=== PATIENT | female | born 2000 | race Hispanic/Latino ===

== ENCOUNTER 2020-08-12 21:47 | Inpatient (IN) | payer OTHER ==
[2020-08-12 22:57] LABS: Bilirubin Neg (Negative); Blood, Urine Negative (Negative); Clarity Clear (Clear); Glucose, Urine (Dipstick) Normal (Negative); Ketone, Urine 50 mg/dL (Negative); Leukocyte Negative (Negative); Nitrite Negative (Negative); Protein, Urine (Dipstick) Negative (Neg-Trace); Urobilinogen Normal mg/dL (Less than 2)
[2020-08-12 23:01] LABS: Pregnancy Test - Urine (BHCG) Negative (Negative)
[2020-08-12 23:02] LABS: Pregu Control Background? CLEAR/WHITE (CLR/WHITE); Pregu Control Bar Appear? YES (CONTROL BAR)
[2020-08-12] MEDS ORDERED: Ondansetron PF 4 MG/2 ML Vial ONE (23:57)
[2020-08-12] MEDS ORDERED: Morphine 4 MG/ML VIAL ONE (23:57)
[2020-08-13 00:07] LABS: #Monocytes 0.2 10x3/uL (0.0-1.1); #Neutrophils 7.8 10x3/uL (1.5-8.4); %Basophils 0.2 % (0.0-2.0); %Eosinophils 0.3 % (0.0-6.0); %Lymphocytes 13.9 % (18.0-47.0); %Monocytes 1.8 % (0.0-10.0); %Neutrophils 83.5 % (40.0-75.0); Hemoglobin 9.9 g/dL (12.0-15.5); Mean Corpuscular HGB CONC 29.2 g/dL (32.0-36.0); Mean Corpuscular Volume 65.2 fl (81.6-98.3); Mean Platelet Volume 8.8 fl (7.4-10.4); Platelet Count 407 10x3/uL (150-450); RBC Distribution Width 18.6 % (11.5-14.5); White Blood Cell (WBC) Count 9.3 10x3/uL (3.5-10.5)
[2020-08-13 00:24] LABS: ALT (SGPT) 11 U/L (8-55); AST (SGOT) 17 U/L (5-34); Albumin 4.4 g/dL (3.5-5.0); Alkaline Phosphatase 63 U/L (40-110); Anion Gap 15 mmol/L (10-20); BUN (Urea Nitrogen) 6 mg/dL (7.0-18.7); Bilirubin, Total 0.5 mg/dL (0.2-1.2); Calc. Creatinine Clearance 0 mL/min (70-130); Calcium 9.8 mg/dL (7.8-10.44); Carbon Dioxide 19 mmol/L (22-29); Chloride 105 mmol/L (98-107); Globulin 3.6 g/dL (2.4-3.5); Glucose 103 mg/dL (70-105); Lipase 26 U/L (8-78); Potassium 3.8 mmol/L (3.5-5.1); Sodium 135 mmol/L (136-145)
[2020-08-13 00:33] LABS: Platelet Morphology Comment Appears Adequate
[2020-08-13 00:35] LABS: Anisocytosis SLIGHT = 6-15 cells (100X) (0-5/hpf); Hypochromia SLIGHT = 6-15 cells (100X) (0-5/hpf); Macrocytosis SLIGHT = 6-15 cells (100X) (0-5/hpf); Microcytosis SLIGHT = 6-15 cells (100X) (0-5/hpf); Target Cells SLIGHT = 2-5 cells (100X) (0-1/hpf)
[2020-08-13] MEDS ORDERED: Morphine 2 MG/ML VIAL SLOW IVP PRN (02:21)
[2020-08-13] MEDS ORDERED: Morphine 4 MG/ML VIAL SLOW IVP PRN (02:21)
[2020-08-13] MEDS ORDERED: Ketorolac Tromethamine 30 MG/ML VIAL IVP PRN (02:21)
[2020-08-13] MEDS ORDERED: Ondansetron PF 4 MG/2 ML Vial IVP PRN (02:23)
[2020-08-13] MEDS ORDERED: Potassium Chloride 20 MEQ/100 ML PREMIX BAG IVPB SCH (03:00)
[2020-08-13] MEDS ORDERED: Morphine 4 MG/ML VIAL ONE ×2 (03:21→05:34)
[2020-08-13] MEDS ORDERED: Potassium Chloride 20 MEQ/100 ML PREMIX BAG ONE (03:35)
[2020-08-13] MEDS ORDERED: Ketorolac Tromethamine 30 MG/ML VIAL ONE (03:35)
[2020-08-13 05:40] LABS: Iron 25 ug/dL (50-170); Iron Binding Capacity, Total 555 mcg/dL (265-497)
[2020-08-13] MEDS: Lactated Ringer's 1,000 ML IV SCH ×2 (05:54→09:49)
[2020-08-13] MEDS ORDERED: Pantoprazole 40 MG VIAL IVP SCH (09:00)
[2020-08-13 10:29] LABS: SARS-CoV-2 NAA Rapid Test Not Detected (NotDetected)
[2020-08-13] MEDS ORDERED: Acetaminophen 500 MG TAB PO PRN (14:58)
[2020-08-13 15:48] VITALS: BMI 19.8
[2020-08-13] MEDS ORDERED: Enoxaparin Sodium 40 MG/0.4 ML SYRINGE SC SCH (21:00)
[2020-08-14] MEDS ORDERED: Polyethylene Glycol 3350 17 GM Packet PO SCH (09:00)
[2020-08-14 11:38] VITALS: BP 102/68; TEMP 98
== END 2020-08-14 16:19 | disposition home or self-care (01) | DRG 390 ==
LOC: CSHERS 21:47 → CSHERHOLD 08-13 04:13 → CSHTELE 08-13 08:50
PROVIDERS: ADMIT Family Medicine; ATTEND Internal Medicine
DX: K56.609 Unspecified intestinal obstruction, unspecified as to partial versus complete obstruction (principal); D50.9 Iron deficiency anemia, unspecified; Z87.19 Personal history of other diseases of the digestive system; Z98.890 Other specified postprocedural states; Z90.721 Acquired absence of ovaries, unilateral; E06.3 Autoimmune thyroiditis; Z20.822 Contact with and (suspected) exposure to COVID-19
CPT/HCPCS: 74018; 74019; 74177; 74250; 80053; 81003; 81025; 83540; 83550; 83605; 83690; 83735; 84443; 85025; 96365; 96366; 96375; 96376; C9113; J1650; J1885; J2270; J2405; J3480; U0002